=== PATIENT | female | born 1980 | race African-American/Black ===

== ENCOUNTER 2018-11-01 15:19 | Inpatient (IN) | payer OTHER ==
[2018-11-01 17:12] VITALS: BMI 33.0
--- NOTE | 2018-11-01 18:24 | HP ---
"CIWA Score Nausea/Vomitin Muscle Tremors: None Anxiety: 0-No Anxiety, at Ease Agitation: 1-Slight > Activity Paroxysmal Sweats: 3 Orientation: 0-Oriented Tacttile Disturbances: 0-None Auditory Disturbances: 0-None Visual Disturbances: 3-Moderate Sensitivity Headache: 2-Mild CIWA-Ar Total Score: 12 - Admission Criteria OASAS Guidelines: Admission for Medically Managed Detox: Requires at least one of the followin. CIWA greater than 12 2. Seizures within the past 24 hours 3. Delirium tremens within the past 24 hours 4. Hallucinations within the past 24 hours 5. Acute intervention needed for co occurring medical disorder 6. Acute intervention needed for co occurring psychiatric disorder 7. Severe withdrawal that cannot be handled at a lower level of care (continued vomiting, continued diarrhea, abnormal vital signs) requiring intravenous medication and/or fluids 8. Admission ROS [facility] Allergies/Adverse Reactions: Allergies Allergy/AdvReac Type Severity Reaction Status Date / Time No Known Allergies Allergy Verified 11/01/18 18:18 History of Present Illness: Search Terms: colleen coto, 1980 Search Date: 11/01/2018 06:18:51 PM The Drug Utilization Report below displays all of the controlled substance prescriptions, if any, that your patient has filled in the last twelve months. The information displayed on this report is compiled from pharmacy submissions to the Department, and accurately reflects the information as submitted by the pharmacies. This report was requested by: Alissa Allen | Reference #: [id number] Others' Prescriptions Patient Name: Colleen Coto Date: 1980 Address: [address] [place] [address] Sex: Female Rx Written Rx Dispensed Drug Quantity Days Supply Prescriber Name 10/22/2018 10/22/2018 suboxone 8 mg-2 mg sl film 90 30 MD Adan, Antony 09/23/2018 09/23/2018 suboxone 8 mg-2 mg sl film 90 30 MD Adan, Antony 08/23/2018 08/23/2018 suboxone 8 mg-2 mg sl film 90 30 MD Adan, Antony 07/26/2018 07/29/2018 suboxone 8 mg-2 mg sl film 90 30 MD Adan, Antony 06/25/2018 06/25/2018 zolpidem tartrate 10 mg tablet 30 30 MD Adan, Antony 06/25/2018 06/25/2018 suboxone 8 mg-2 mg sl film 90 30 MD Adan, Antony 05/23/2018 05/25/2018 suboxone 8 mg-2 mg sl film 30 30 MD Adan, Antony 05/15/2018 05/15/2018 suboxone 8 mg-2 mg sl film 30 15 Yemi Martinez 05/02/2018 05/08/2018 zolpidem tartrate 10 mg tablet 30 30 MD Adan, Antony 05/02/2018 05/02/2018 suboxone 8 mg-2 mg sl film 30 15 MD Adan, Antony * - Drugs marked with an asterisk are compound drugs. If the compound drug is made up of more than one controlled substance, then each controlled substance will be a separate row in the table. pt here requesting detox from etoh use , reports use since 1998 , daily use , 24 -oz cans of beer > 5 , reports nausea and tremors if not drinking, denies seizures, + blackouts , denies falls while intoxicated ,denies driving . latest ues yesterday , current symptoms as above, denies current Si / HI. cannabis : 2 blunts/day since age 12 tobacco : 1 ppd , not interested in quitting at this time lmp 10/21/18 , children ages 19 & 12 , youngest w/ bio father shx ; in skilled nursing , unemployed since Jun 2018 , worked maintenance for housing , fell downstairs on gi , right ankle frx w/ ORIF w/ hardware in place , saw orthopedics , w/ aircast since aug 2018 , f[facility] , using cane for ambulation and stability PShx ; as above pmhx : denies meds : denies Exam Limitations: No Limitations - Ebola screening Have you traveled outside of the country in the last 21 days: No Have you had contact with anyone from an Ebola affected area: No Have you been sick,other than usual withdrawal symptoms: No - Review of Systems Constitutional: See HPI EENT: reports: Other (myopia , denies dysphagia) Respiratory: reports: No Symptoms reported Cardiac: reports: No Symptoms Reported GI: reports: See HPI : reports: No Symptoms Reported Musculoskeletal: reports: See HPI Integumentary: reports: See HPI Neuro: reports: Headache Endocrine: reports: No Symptoms Reported Psychiatric: reports: Orientated x3 Patient History - Smoking Cessation Smoking history: Current every day smoker Have you smoked in the past 12 months: Yes Aproximately how many cigarettes per day: 20 Hx Chewing Tobacco Use: No Initiated information on smoking cessation: No Family Disease History - Family Disease History Family Disease History: Heart Disease: Mother (d. 57 , [place] ), [place]: Father (d. 70 , stomach ), Other: Father, Mother, Brother (asthma , A & W ), Sister (A & W , ALINA crack cocaine ), Son (A & W ), Daughter (A & W ) Admission Physical Exam S - Vital Signs Vital Signs: Vital Signs - 24 hr 11/01/18 17:11 Temperature 96.8 F L Pulse Rate 89 Respiratory 18 Rate Blood Pressure 138/90 - Physical General Appearance: Yes: No Apparent Distress HEENTM: Yes: EOMI, Hearing grossly Normal, Normocephalic, Normal Voice Respiratory: Yes: Chest Non-Tender, Lungs Clear, Normal Breath Sounds Neck: Yes: No masses,lesions,Nodules, Trachea in good position Cardiology: Yes: Regular Rhythm, Regular Rate, S1, S2, Tachycardia Abdominal: Yes: Non Tender, Soft Genitourinary: Yes: Within Normal Limits Back: Yes: Normal Inspection Musculoskeletal: Yes: Other (using cane for stability , right left aircast) Extremities: Yes: Non-Tender (except surgical scar), Other (right leg aircast , surgical scarring bi- malleolar w/edema of the ankle , decreased AROM) Neurological: Yes: Fully Oriented, Alert, Motor Strength 5/5, Normal Mood/Affect Integumentary: Yes: Other (surgical scar Right ankle) - Diagnostic (1) Alcohol dependence Current Visit: Yes Status: Acute Qualifiers: Substance use status: in withdrawal (2) Cannabis abuse Current Visit: Yes Status: Chronic (3) Nicotine dependence Current Visit: Yes Status: Chronic Qualifiers: Nicotine product type: cigarettes [facility] Breath Alcohol Content Breath Alcohol Content: 0 Urine Drug Screen - Results Drug Screen Negative: No Urine Drug Screen Results: THC-Marijuana Inpatient Rehab Admission - Rehab Decision to Admit Inpatient rehab admission?: No"
[2018-11-01] MEDS ORDERED: NICOTINE POLACRILEX 2 MG GUM BUC PRN (18:35)
[2018-11-01] MEDS ORDERED: chlordiazePOXIDE HCL 10 MG CAPSULE PO PRN (18:35)
[2018-11-01] MEDS ORDERED: ACETAMINOPHEN 325 MG TABLET (FP) PO PRN ×2 (18:35)
[2018-11-01] MEDS ORDERED: MAG HYDROX/AL HYDROX/SIMETH 30 ML UNIT-DOSE CUP PO PRN (18:35)
[2018-11-01] MEDS ORDERED: METHOCARBAMOL 500 MG TABLET PO PRN (18:35)
[2018-11-01] MEDS ORDERED: MAGNESIUM HYDROX 2400MG/30ML ORAL SUSPENSION 30 ML CUP PO PRN (18:35)
[2018-11-01] MEDS ORDERED: MELATONIN 5 MG TABLETS PO PRN (18:35)
[2018-11-01] MEDS ORDERED: BISMUTH SUBSALICYLATE 524 MG/30 ML UD PO PRN (18:35)
[2018-11-01] MEDS ORDERED: MENTHOL/PHENOL 1 EACH UD MM PRN (18:35)
[2018-11-01] MEDS ORDERED: MAGNESIUM CITRATE 300 ML BOTTLE PO PRN (18:35)
[2018-11-01] MEDS ORDERED: IBUPROFEN 400 MG TABLET (FP) PO PRN (18:35)
[2018-11-01] MEDS: THIAMINE HCL 100 MG TABLET (FP) PO SCH (22:20)
[2018-11-01] MEDS: chlordiazePOXIDE HCL 25 MG CAPSULE PO SCH (22:20)
[2018-11-02] MEDS: chlordiazePOXIDE HCL 25 MG CAPSULE PO SCH ×2 (07:25→13:44)
[2018-11-02] MEDS: PRENATAL VITAMINS W/ FOLIC ACID TABLET (FP) PO SCH (10:36)
[2018-11-02 10:52] LABS: HEMATOCRIT 28.5 % (32.4-45.2); HEMOGLOBIN 8.9 GM/dL (10.7-15.3); MCH 22.5 pg (25.7-33.7); MEAN CELL VOLUME 72.3 fl (80-96); PLATELET COUNT 257 K/MM3 (134-434); RBC 3.94 M/mm3 (3.60-5.2); RDW 18.6 % (11.6-15.6); WHITE BLOOD COUNT 5.7 K/mm3 (4.0-10.0)
[2018-11-02 11:13] LABS: ALBUMIN 3.1 g/dl (3.4-5.0); ALK PHOS 57 U/L (45-117); ANION GAP 7 MMOL/L (8-16); BILIRUBIN,TOTAL 0.3 mg/dL (0.2-1); BLOOD UREA NITROGEN 7 mg/dL (7-18); CALCIUM 8.5 mg/dL (8.5-10.1); CHLORIDE 102 mmol/L (98-107); CO2 27 mmol/L (21-32); CREATININE 0.8 mg/dL (0.55-1.3); GLUCOSE,RANDOM 85 mg/dL (74-106); SGOT/AST 14 U/L (15-37); SGPT/ALT 15 U/L (13-61); SODIUM 136 mmol/L (136-145)
--- NOTE | 2018-11-02 15:04 | PN ---
S CIWA - CIWA Score Nausea/Vomitin Muscle Tremors: 3 Anxiety: 2 Agitation: 2 Paroxysmal Sweats: 3 Orientation: 0-Oriented Tacttile Disturbances: 2-Mild Itch/Numbness/Burn Auditory Disturbances: 0-None Visual Disturbances: 0-None Headache: 0-None Present CIWA-Ar Total Score: 14 S Progress Note (SOAP) Subjective: Shakes, sweats, leg pain s/p right ankle fx Objective: 11/02/18 15:03 Vital Signs 11/02/18 11/02/18 11/02/18 08:35 09:48 14:35 Temperature 97.7 F 98.1 F 98.1 F Pulse Rate 73 77 85 Respiratory 18 18 18 Rate Blood Pressure 116/72 134/76 129/87 Laboratory Last Values WBC 5.7 K/mm3 (4.0-10.0) 11/02/18 07:45 RBC 3.94 M/mm3 (3.60-5.2) 11/02/18 07:45 Hgb 8.9 GM/dL (10.7-15.3) L 11/02/18 07:45 Hct 28.5 % (32.4-45.2) L 11/02/18 07:45 MCV 72.3 fl (80-96) L 11/02/18 07:45 MCH 22.5 pg (25.7-33.7) L 11/02/18 07:45 MCHC 31.0 g/dl (32.0-36.0) L 11/02/18 07:45 RDW 18.6 % (11.6-15.6) H 11/02/18 07:45 Plt Count 257 K/MM3 (134-434) 11/02/18 07:45 MPV 7.0 fl (7.5-11.1) L 11/02/18 07:45 Sodium 136 mmol/L (136-145) 11/02/18 07:45 Potassium 4.0 mmol/L (3.5-5.1) 11/02/18 07:45 Chloride 102 mmol/L (98-107) 11/02/18 07:45 Carbon Dioxide 27 mmol/L (21-32) 11/02/18 07:45 Anion Gap 7 MMOL/L (8-16) L 11/02/18 07:45 BUN 7 mg/dL (7-18) 11/02/18 07:45 Creatinine 0.8 mg/dL (0.55-1.3) 11/02/18 07:45 Creat Clearance w eGFR 80.27 (>60) 11/02/18 07:45 Random Glucose 85 mg/dL (74-106) 11/02/18 07:45 Calcium 8.5 mg/dL (8.5-10.1) 11/02/18 07:45 Total Bilirubin 0.3 mg/dL (0.2-1) 11/02/18 07:45 AST 14 U/L (15-37) L 11/02/18 07:45 ALT 15 U/L (13-61) 11/02/18 07:45 Alkaline Phosphatase 57 U/L (45-117) 11/02/18 07:45 Total Protein 7.0 g/dl (6.4-8.2) 11/02/18 07:45 Albumin 3.1 g/dl (3.4-5.0) L 11/02/18 07:45 RPR Titer Nonreactive (NONREACTIVE) 11/02/18 07:45 HIV 1&2 Antibody Screen Negative 11/02/18 09:00 HIV P24 Antigen Negative 11/02/18 09:00 Labs noted, low H/H Assessment: 11/02/18 15:04 Withdrawal sx Anemia Plan: Continue detox Iron supplements Instructed pt to follow up with PCP upon discharge for anemia work up
[2018-11-02] MEDS: FERROUS SO4 325 MG TABLET (FP) PO SCH (18:49)
[2018-11-02] MEDS: chlordiazePOXIDE 5 MG CAPSULE PO SCH (22:28)
[2018-11-02] MEDS: THIAMINE HCL 100 MG TABLET (FP) PO SCH (22:28)
[2018-11-02] MEDS: traZODone HCL 50 MG TABLET (FP) PO PRN (22:30)
[2018-11-03] MEDS: chlordiazePOXIDE 5 MG CAPSULE PO SCH ×2 (06:33→14:26)
[2018-11-03] MEDS: FERROUS SO4 325 MG TABLET (FP) PO SCH ×2 (08:16→17:56)
[2018-11-03] MEDS: PRENATAL VITAMINS W/ FOLIC ACID TABLET (FP) PO SCH (10:31)
--- NOTE | 2018-11-03 13:58 | PN ---
[facility] CIWA - CIWA Score Nausea/Vomitin-No Nausea/No Vomiting Muscle Tremors: 1-None Visible, but [place] Anxiety: 3 Agitation: 3 Paroxysmal Sweats: No Perspiration Orientation: 0-Oriented Tacttile Disturbances: 0-None Auditory Disturbances: 0-None Visual Disturbances: 0-None Headache: 0-None Present CIWA-Ar Total Score: 7 S Progress Note (SOAP) Subjective: anxiety I need an rusty bandage for my right ankle. It an old injury and I need some support irritable Objective: 11/03/18 13:57 Vital Signs Temperature 98.1 F 11/03/18 10:03 Pulse Rate 77 11/03/18 10:03 Respiratory Rate 18 11/03/18 10:03 Blood Pressure 112/57 L 11/03/18 10:03 O2 Sat by Pulse Oximetry (%) Laboratory Tests 11/02/18 11/02/18 11/02/18 07:45 07:45 07:45 WBC 5.7 RBC 3.94 Hgb 8.9 L Hct 28.5 L MCV 72.3 L MCH 22.5 L MCHC 31.0 L RDW 18.6 H Plt Count 257 MPV 7.0 L Sodium 136 Potassium 4.0 Chloride 102 Carbon Dioxide 27 Anion Gap 7 L BUN 7 Creatinine 0.8 Creat Clearance w eGFR 80.27 Random Glucose 85 Calcium 8.5 Total Bilirubin 0.3 AST 14 L ALT 15 Alkaline Phosphatase 57 Total Protein 7.0 Albumin 3.1 L RPR Titer Nonreactive HIV 1&2 Antibody Screen HIV P24 Antigen 11/02/18 09:00 WBC RBC Hgb Hct MCV MCH MCHC RDW Plt Count MPV Sodium Potassium Chloride Carbon Dioxide Anion Gap BUN Creatinine Creat Clearance w eGFR Random Glucose Calcium Total Bilirubin AST ALT Alkaline Phosphatase Total Protein Albumin RPR Titer HIV 1&2 Antibody Screen Negative HIV P24 Antigen Negative aaox3 ambulating no acute distress Assessment: 11/03/18 13:58 withdrawal sx Plan: continue detox rusty bandage increase fluids d/c in am
--- NOTE | 2018-11-03 15:56 | PN ---
[facility] Progress Note Note: pt c/o eczema; lidex ordered.
[2018-11-03] MEDS: FLUOCINONIDE 0.05% CREAM (60 GM TUBE) TP SCH ×2 (19:25→22:26)
[2018-11-03] MEDS ORDERED: chlordiazePOXIDE HCL 10 MG CAPSULE PO PRN (21:00)
[2018-11-03] MEDS: THIAMINE HCL 100 MG TABLET (FP) PO SCH (22:26)
[2018-11-03] MEDS: traZODone HCL 50 MG TABLET (FP) PO PRN (22:26)
[2018-11-03] MEDS: chlordiazePOXIDE HCL 10 MG CAPSULE PO SCH (22:26)
[2018-11-04 06:39] VITALS: BP 116/80; PULSE 81; TEMP 97.7
[2018-11-04] MEDS: chlordiazePOXIDE HCL 10 MG CAPSULE PO SCH (06:57)
[2018-11-04] MEDS: FERROUS SO4 325 MG TABLET (FP) PO SCH (07:32)
--- NOTE | 2018-11-04 09:16 | DS ---
[facility] Detox Discharge Summary Admission Date: 11/01/18 Discharge Date: 11/04/18 - History Present History: Alcohol Dependence, Cannabis Dependence - Physical Exam Results Vital Signs: Vital Signs Temperature 97.7 F 11/04/18 06:39 Pulse Rate 81 11/04/18 06:39 Respiratory Rate 18 11/04/18 06:39 Blood Pressure 116/80 11/04/18 06:39 O2 Sat by Pulse Oximetry (%) - Treatment Hospital Course: Detox Protocol Followed, Detoxed Safely, Responded well, Discharged Condition Good, Rehab Referral Accepted - Medication Discharge Medications: Ambulatory Orders NK [No Known Home Medication] 11/01/18 - Diagnosis (1) Alcohol dependence Current Visit: Yes Status: Acute Qualifiers: Substance use status: uncomplicated Qualified Code(s): F10.20 - Alcohol dependence, uncomplicated (2) Cannabis abuse Current Visit: Yes Status: Chronic (3) Nicotine dependence Current Visit: Yes Status: Chronic Qualifiers: Nicotine product type: cigarettes Substance use status: uncomplicated Qualified Code(s): F17.210 - Nicotine dependence, cigarettes, uncomplicated - AMA Did Patient Leave Against Medical Advice: No (referred to outpatient rehab. )
== END 2018-11-04 09:15 | disposition home or self-care (01) | DRG 775 ==
LOC: YASAS 15:19 → Y6N 20:34
PROVIDERS: ADMIT Surgery; ATTEND Surgery
PROC: HZ2ZZZZ Detoxification Services for Substance Abuse Treatment (ICD-10-PCS; principal; 2018-11-01)
DX: F10.230 Alcohol dependence with withdrawal, uncomplicated (principal); F12.10 Cannabis abuse, uncomplicated; F17.210 Nicotine dependence, cigarettes, uncomplicated; D64.9 Anemia, unspecified; R00.0 Tachycardia, unspecified
CPT/HCPCS: 36415; 80053; 85027; 86593; 87389